=== PATIENT | male | born 1960 | race Caucasian/White ===

== ENCOUNTER 2019-02-10 22:57 | Inpatient (IN) ==
[2019-02-10 23:32] LABS: OCCULT BLOOD 1 POSITIVE (NEGATIVE)
[2019-02-11 00:34] LABS: BASO# 0.02 X1000 (0.0-0.2); BASO% 0.1 % (0.0-0.8); EOS# 0.25 X1000 (0.0-0.7); EOS% 1.8 % (0.0-10.0); HEMATOCRIT 39.7 % (42.0-52.0); HEMOGLOBIN 13.2 g/dL (14.0-18.0); IMM GRAN# 0.05 X1000 (0.0-0.04); IMM GRAN% 0.4 % (0.0-0.5); LYMPH# 4.78 X1000 (1.2-3.4); MCH 28.5 PG (27-31); MCHC 33.2 g/dL (33-37); MCV 85.7 FL (81-99); MONO# 1.19 X1000 (0.11-0.59); MONO% 8.7 % (1.7-9.3); MPV 11.4 FL (7.4-10.4); NEUT# 7.37 X1000 (1.4-6.5); PLT 259 X1000 (130-400); RBC 4.63 XMIL (4.7-6.1); RDW 13.1 % (11.5-14.5); WBC 13.66 X1000 (4.8-10.8)
[2019-02-11 01:02] LABS: INR 1.04; PROTIME 14.1 Seconds (11.0-16.0)
[2019-02-11 02:47] LABS: AGAP 15; BUN 18 mg/dL (8-22); CALCIUM 9.6 mg/dL (8.8-10.2); CHLORIDE 98 mmol/L (98-107); COSMO 275; CREATININE 0.9 mg/dL (0.7-1.2); ESTIMATED GFR > 60; GLUCOSE 127 mg/dL (70-104); POTASSIUM 5.1 mmol/L (3.5-5.1); SODIUM 136 mmol/L (136-145); TCO2 23 mmol/L (25-35)
--- NOTE | 2019-02-11 02:48 | PROVIDER DOCUMENTATION ---
This chart was entered by Sigifredo Cornelius Scribe, acting as scribe for Scooter Nowak MD. HPI-Abdominal Pain/GI Problem - General Chief Complaint: Rectal Bleeding Stated Complaint: RECTAL BLEED Time Seen by Provider: 02/10/19 23:09 Source: patient, family Allergies/Adverse Reactions: Patient Allergies Allergy/AdvReac Type Severity Reaction Status Date / Time No Known Allergies Allergy Verified 02/11/19 00:39 Home Medications: Home Medication List Medication Instructions Recorded Confirmed Last Taken Type ATORVAstatin [Lipitor] 80 mg PO DAILY 01/03/19 02/11/19 02/10/19 History Clopidogrel [Plavix] 75 mg PO DAILY 01/03/19 02/11/19 02/10/19 History Diltiazem HCl [Cartia Xt] 240 mg PO DAILY 01/03/19 02/11/19 02/10/19 History Furosemide 40 mg PO BID 01/03/19 02/11/19 02/10/19 History Indapamide 0.625 mg PO DAILY 01/03/19 02/11/19 02/10/19 History Losartan Potassium 100 mg PO DAILY 01/03/19 02/11/19 02/10/19 History Metformin [Glucophage] 1,000 mg PO BID CC 01/03/19 02/11/19 02/10/19 History Potassium Chloride E.r. [Klor-Con] 20 meq PO BID 01/03/19 02/11/19 02/10/19 History Spironolactone 25 mg PO DAILY 01/03/19 02/11/19 02/10/19 History Metoprolol Succinate E.r. [Toprol 1 tab PO DAILY 02/11/19 02/11/19 02/10/19 History Xl] Sitagliptin Phosphate [Januvia] 1 tab PO DAILY 02/11/19 02/11/19 02/11/19 Hi story - History of Present Illness-ABD Nature of Presenting Problems: Pt is a 58 yom who presents to the ED with a CC of rectal bleeding. Pt reports he had a stroke on January 03 and states in January he was put on Asprin. Pt reports he noticed rectal bleeding yesterday and states it was bright red blood and dark clots after a bowel movement. Pt reports similar symptoms previously and states he was taking Asprin at that time. Pt reports a hx of hemorrhoids. Upon examination no active bleeding was noted. Abdominal Pain Onset Location: reports: generalized abdomen Quality of Pain: reports: dull Severity in ED: reports: mild Onset/Duration: reports: 24 hours ago Timing: reports: still present Associated Symptoms: reports: other Rectal Bleeding: reports: bright red blood on paper Bruising or Bleeding Gums?: No Similar Symptoms Previously?: Yes Recently seen or treated by another doctor?: No Review of Systems - Adult - REVIEW OF SYSTEMS - ADULT Constitutional: reports: see HPI Eyes: reports: no symptoms reported Ears, Nose, Mouth & Throat: reports: no symptoms reported Cardiovascular: reports: no symptoms reported Respiratory: reports: no symptoms reported Gastrointestinal: reports: see HPI, rectal bleeding Genitourinary: reports: no symptoms reported Musculoskeletal: reports: no symptoms reported Integumentary: reports: no symptoms reported Neurological: reports: no symptoms reported Psychiatric: reports: no symptoms reported Endocrine: reports: no symptoms reported Hematologic/Lymphatic: reports: no symptoms reported Allergic/Immunologic: reports: no symptoms reported All Other Systems: Reviewed and Negative Past History - Adult - PAST MEDICAL HISTORY-ADULT Review of Records: reports: Old Records Reviewed, Nursing Assessment Review, Medications Reviewed, Social history reviewed & non-contributory. Major Childhood Illnesses: reports: denies history Cardiovascular: reports: denies history Respiratory: reports: denies history Gastrointestinal: reports: denies history Obstetrical/Gynecological: reports: denies history Genitourinary: reports: denies history Musculoskeletal: reports: denies history Neurological: reports: denies history Endocrine/Immune: reports: denies history Other Conditions: reports: denies history - IMMUNIZATION STATUS Childhood Immunizations: See Nurse Assessment Flu Vaccine: See Nurse Assessment - FAMILY HISTORY Family History: reviewed, not pertinent - SOCIAL HISTORY Smoking: cigarettes, greater than 1 pack/day Substance Use: none/never, denies Alcohol Use Frequency: never Physical Exam-General - PHYSICAL EXAM-ADULT Initial Vital Signs Reviewed: Yes - CONSTITUTIONAL General Appearance: alert, mild distress - EYES Eyes: PERRL/EOMI - HEAD, EARS, NOSE, MOUTH & THROAT HENMT: moist mucous membranes - NECK Neck: non-tender, full range of motion - RESPIRATORY Respiratory: chest non-tender, lungs clear, normal breath sounds, no pleuratic chest pain, no respiratory distress, no accessory muscle use - CARDIOVASCULAR Cardiovascular: normal peripheral pulses, regular rate, rhythm, no edema, no gallop, no JVD, no murmur - GASTROINTESTINAL (ABDOMEN) Abdominal Exam: soft - GENITOURINARY Rectal Exam: tenderness, other (no active bleeding, heme positive dark stool) Hemoccult Exam: heme positive stool - LYMPHATIC Lymphatic: no adenopathy - MUSCULOSKELETAL Extremity: normal range of motion, non-tender - SKIN Integumentary: normal color, warm/dry - NEUROLOGIC Neurologic: grossly normal, no motor/sensory deficits - PSYCHIATRIC Psych/Mental Status: normal mood/affect, normal thought content, normal thought process, oriented x 3 Progress - PLAN OF CARE/RESULTS Progress/Plan/Lab Results: Vital Signs - 8 hr 02/10/19 23:00 Temperature 97.8 F Pulse Rate 84 Respiratory Rate 16 Blood Pressure 106/69 O2 Sat by Pulse Oximetry 99 Result Diagrams: 02/10/19 00:10 02/10/19 00:10 - CONSULTS/PCP/HOSPITALIST Notification #1 *Consult/PCP/Hospitalist*: Dr. Tidwell, hospitalist Time Discussed: 02:45 Consult Disposition: Admit Departure - Departure Date of Disposition Decision: 02/10/19 Time of Disposition Decision: 02:48 DIAGNOSIS: GI bleed Qualifiers: GI bleed type/associated pathology: unspecified gastrointestinal hemorrhage type Qualified Code(s): K92.2 - Gastrointestinal hemorrhage, unspecified Disposition: ADMITTED INPATIENT 09 Certified Medical Emergency: Emergent Condition: Stable Additional Instructions: ED Follow Up Instructions: You have been treated by a care provider in the Emergency Department. These instructions are being provided to you so you can have an understanding of how to care for yourself upon discharge. Upon discharge from the Emergency Department, you are responsible for making arrangements for follow-up care by a physician of your choice. Take all prescribed medications as directed. Return to the Emergency Department immediately for any new or worsening symptoms. You may call the Physician Referral phone number at [phone] to obtain a list of Physicians who are taking new patients. Referrals and Follow-Ups: Iam Blanca MD [Primary Care Provider] - Discharge Education: Steps to Quit Smoking, [id number] - Critical Care Note This patient required my direct & personal management of CC.: No Attestation - Physician/ KELLEY Attestation Patient care was provided by Advanced Practice Provider:: No The physician spent face to face time with patient:: Yes Advanced Practice Provider documentation review:: Supervising physician onsite and consulted in the evaluation and care of this patient. The physician did have a face to face encounter with the patient. This chart was documented by the indicated scribe, (Sigifredo Cornelius, Ruddy) and accurately reflects the services I performed and decisions made by me, Scooter Nowak MD, as attested by the provider's signature.
[2019-02-11] MEDS ORDERED: NS 1,000 ML IV ONE (02:49)
[2019-02-11] MEDS ORDERED: ZOFRAN IV PRN (02:49)
[2019-02-11] MEDS ORDERED: SODIUM CHLORIDE 0.9% INJ ONE ×2 (02:51→15:42)
[2019-02-11] MEDS ORDERED: PROTONIX IV ONE (02:51)
[2019-02-11] MEDS ORDERED: DUONEB (A & A) INH PRN (06:03)
[2019-02-11 06:07] LABS: HEMATOCRIT 40.3 % (42.0-52.0); HEMOGLOBIN 13.4 g/dL (14.0-18.0)
[2019-02-11] MEDS: HUMULIN R SUBQ SCH ×4 (06:21→22:06)
--- NOTE | 2019-02-11 08:14 | HISTORY AND PHYSICAL ---
PRIMARY CARE PHYSICIAN: Dr. Blanca. CHIEF COMPLAINT: Rectal bleeding x2 days. HISTORY OF PRESENTING ILLNESS: This is a 58-year-old male with a history of CVA, hypertension, diabetes mellitus type 2, and COPD who presented to the emergency department with a 2 day history of having rectal bleeding. He states that initially it was bright red blood along with some clots. He was initially evaluated at [facility], [place] and his case was discussed with gastroenterology who recommended that the patient be transferred to [facility] for further management. At the time of my examination, the patient denied any headache, fever, chills, nausea, vomiting, diarrhea, or any weight changes but complained of rectal bleeding. PAST MEDICAL HISTORY: Includes CVA, hypertension, diabetes mellitus type 2, hyperlipidemia, COPD. PAST SURGICAL HISTORY: Cervical fusion, hernia repair. ALLERGIES: No known drug allergies. CURRENT MEDICATIONS: Include atorvastatin 80 mg p.o. daily, Plavix 75 mg p.o. daily, diltiazem 240 mg p.o. daily, Lasix 40 mg p.o. b.i.d., losartan 100 mg p.o. daily, metformin 1000 mg p.o. b.i.d., metoprolol 25 mg p.o. daily, Januvia 100 mg p.o. daily, spironolactone 25 mg p.o. daily. SOCIAL HISTORY: A 40+ pack year history of smoking. Denies any history of alcohol or illicit drug use. FAMILY HISTORY: No history of coronary artery disease. REVIEW OF SYSTEMS: Fourteen point review of systems as listed in the HPI. Other systems negative. PHYSICAL EXAMINATION: GENERAL: Cooperative, friendly male. He is resting more comfortably now. VITAL SIGNS: Temperature 98.0 degrees, pulse 69, respirations 24, blood pressure 141/72. HEENT: Atraumatic, normocephalic. Extraocular movements intact. PERRLA. NECK: No masses. CHEST: Clear to auscultation. CARDIOVASCULAR: Regular rate and rhythm. ABDOMEN: Soft. Positive bowel sounds. EXTREMITIES: No edema. NEUROLOGIC: He is awake, alert, oriented x3. : No bladder distention. SKIN: Warm. LABORATORIES AND STUDIES: WBC 13.66, hemoglobin 13.2, hematocrit 39.7, platelets 259,000. Sodium 136, potassium 5.1, chloride 98, CO2 is 23, BUN is 18, creatinine 0.9, glucose is 127. ASSESSMENT: A 58-year-old male with a history of cerebrovascular accident, hypertension, diabetes mellitus type 2, and chronic obstructive pulmonary disease who had presented to the emergency department with a 2 day history of rectal bleeding. He was initially seen at [facility], [place] and due to lack of subspecialist care, he was transferred to [facility] for further evaluation and management. 1. Rectal bleeding. 2. Hypertension. 3. Diabetes mellitus type 2. 4. Chronic obstructive pulmonary disease. PLAN: 1. We will admit patient to medical floor with telemetry. 2. We will keep patient NPO. 3. Continue with IV fluids. 4. We will consult gastroenterology. 5. Monitor blood pressure closely. 6. Monitor blood glucose and put patient on sliding scale insulin regimen. 7. Continue with DuoNebs p.r.n. 8. Put patient on DVT prophylaxis with SCDs. 9. We will continue to follow, reassess, and make further recommendations based on patient's clinical course. cc: Peter Tidwell MD
[2019-02-11] MEDS: CARDIZEM CD PO SCH (10:50)
[2019-02-11] MEDS: TOPROL XL PO SCH (10:50)
[2019-02-11] MEDS ORDERED: GOLYTELY PO ONE (14:00)
[2019-02-11 14:42] LABS: HEMATOCRIT 39.3 % (42.0-52.0); HEMOGLOBIN 12.9 g/dL (14.0-18.0)
--- NOTE | 2019-02-11 15:30 | GASTROENTEROLOGY CONSULTATION ---
DATE: 02/11/2019 REASON FOR CONSULTATION: Rectal bleeding. HISTORY OF PRESENT ILLNESS: Mr. Lynn is a 58-year-old male, history of stroke with right-sided weakness, his stroke has affected his peripheral vision and also his memory recalling is slow. He has hypertension, diabetes type 2, COPD, and history of hemorrhoids. He presented to the ER last night with bleeding for the last 2 days. Described the bleeding as bright red and clots of blood. He is on Plavix and aspirin. He has denied any nausea, vomiting, but complains of dizziness, weakness, and drowsiness. Yesterday he had 2 to 3 bowel movements, today had one BM and a few drops of blood. He is on 2 L nasal cannula. His colonoscopy was done at [place] with Dr Copeland and it showed Hemorrhoids and colon polyps. Patient has never had an EGD in the past. He had mild drop in Hematocrit since admission. His last dose of Plavix was yesterday. PAST MEDICAL HISTORY: CVA, hypertension, diabetes mellitus type 2, hyperlipidemia, COPD, atrial fibrillation. PAST SURGICAL HISTORY: He had some plates put in his back of the neck, hernia repair with mesh, stents in his leg and in his stomach. ALLERGIES: No known drug allergies. HOME MEDICATIONS: Plavix, diltiazem, indapamide, losartan, metformin, spironolactone, atorvastatin, furosemide, potassium chloride, metoprolol, and Januvia. SOCIAL HISTORY: He is , has 1 kid. He is a smoker, has 1/2 to 1 pack a day, but denies having alcohol. FAMILY HISTORY: His mom and dad both had cancer, but does not know exactly which type of cancer. Brother had throat cancer. Sister has heart problems. Another brother has both the legs amputated. REVIEW OF SYSTEM: As per HPI. Otherwise, 12 point review of systems is negative. PHYSICAL EXAMINATION: Vital Signs: Temperature is 97.7, pulse is 71, respirations 20, blood pressure is 144/69, oxygen saturation is 93% on 2 L nasal cannula. General: He is alert, oriented x3, in no acute distress, and he is answering questions appropriately. HEENT: Pale conjunctivae. No icterus. PERRL. Neck: Supple. Chest: Wheezing heard in the anterior larkin. Cardiovascular: Regular rate and rhythm. No murmurs, rubs, or gallops heard on auscultation. Abdomen: Soft, distended, nontender. Active bowel sounds heard in all 4 quadrants. Extremities: No cyanosis, clubbing, or edema, 2+ pedal pulses present bilaterally. Neurologic: Alert, oriented x3. Nonfocal. Cranial nerves II to XII grossly intact. LABORATORY: WBC is 13.66 hemoglobin 13.4, hematocrit is 40.3, platelet count is 259,000. Sodium is 136, potassium is 5.1, chloride is 98, carbon dioxide is 23, anion gap is 15, BUN is 18, creatinine 0.9, glucose 127, calcium 9.6. IMPRESSION AND PLAN: 1. Rectal bleeding. 2. Hypertension. 3. Diabetes type 2. 4. Chronic obstructive pulmonary disease. 5. Hyperlipidemia. 6. Atrial fibrillation. 7. History of stroke. 8. carotid Stenosis and has carotid surgery Planned for at [facility]. PLAN: Patient is on clear liquid diet and will start him on Golytely, he will be NPO past midnight for an EGD and colonoscopy to find out the cause of his GI bleed. This will be just a diagnostic procedure because patient had his Plavix and aspirin yesterday. We will continue with protonix IV daily. We had ordered the lab collagen/EPI PLT AGG to measure platelet aggregation in AM. Patient's H & H today was13.4 & 40.3, we will continue to monitor his CBC and BMP, and continue the plan of care per PCP. Further plan of care will be based on the EGD and colonoscopy findings. This plan will be discussed with Dr. Roldan. Thank you for your consult. Please call us for any further questions or concerns. Dictated by SINAN Mendoza for Darin Roldan MD cc: Darin Roldan MD Patient seen and examined and I agree with the above plan of care. Discussed the above plan of care with the patient and family at bedside and all questions were answered. Please call us with any further questions. [facility]
[2019-02-11] MEDS ORDERED: PROTONIX IV SCH (15:45)
--- NOTE | 2019-02-11 17:35 | PROGRESS NOTE ---
DATE: 02/11/2019 Patient admitted with hematochezia. Initially did not have any further hematochezia after admission, but this afternoon did have another grossly bloody bowel movement. Gastroenterology on board and planning for endoscopy in the morning. Repeat blood counts so far with only minimal decrease, but will continue monitoring. No need for transfusion at this time. Holding aspirin and Plavix currently.
[2019-02-12] MEDS: HUMULIN R SUBQ SCH ×2 (06:07→12:22)
[2019-02-12 07:10] LABS: BASO# 0.01 X1000 (0.0-0.2); BASO% 0.1 % (0.0-0.8); EOS# 0.21 X1000 (0.0-0.7); EOS% 2.2 % (0.0-10.0); HEMATOCRIT 40.1 % (42.0-52.0); HEMOGLOBIN 13.4 g/dL (14.0-18.0); IMM GRAN# 0.03 X1000 (0.0-0.04); IMM GRAN% 0.3 % (0.0-0.5); LYMPH# 3.04 X1000 (1.2-3.4); LYMPH% 31.4 % (20.5-51.1); MCH 28.9 PG (27-31); MCHC 33.4 g/dL (33-37); MCV 86.4 FL (81-99); MONO# 0.66 X1000 (0.11-0.59); MONO% 6.8 % (1.7-9.3); MPV 10.7 FL (7.4-10.4); NEUT# 5.72 X1000 (1.4-6.5); NEUT% 59.2 % (42.2-75.2); PLT 230 X1000 (130-400); RBC 4.64 XMIL (4.7-6.1); RDW 13.1 % (11.5-14.5); WBC 9.67 X1000 (4.8-10.8)
[2019-02-12 07:30] LABS: AGAP 12; BUN 7 mg/dL (8-22); CALCIUM 8.8 mg/dL (8.8-10.2); CHLORIDE 102 mmol/L (98-107); COSMO 277; CREATININE 0.6 mg/dL (0.7-1.2); ESTIMATED GFR > 60; GLUCOSE 128 mg/dL (70-104); POTASSIUM 3.4 mmol/L (3.5-5.1); SODIUM 139 mmol/L (136-145); TCO2 25 mmol/L (25-35)
[2019-02-12 07:53] LABS: COLLAGEN/EPI PLT AGG 182 Seconds (87-172)
[2019-02-12 08:04] LABS: COLLAGEN/ADP PLT AGG 99 Seconds (65-124)
[2019-02-12] MEDS ORDERED: LIPITOR PO SCH (09:00)
[2019-02-12] MEDS ORDERED: DIPRIVAN 1% ONE ×2 (09:42→09:43)
[2019-02-12] MEDS ORDERED: XYLOCAINE-MPF 2% ONE (09:43)
[2019-02-12] MEDS ORDERED: FENTANYL ONE ×2 (09:43→09:44)
--- NOTE | 2019-02-12 10:20 | ENDOSCOPY OPERATIVE NOTE ---
[facility] ENDOSCOPY OPERATIVE NOTE , PATIENT: Johnson Lynn ADM DATE: MR #: [id number] : 1960 COLONOSCOPY PROCEDURE REPORT PROCEDURE DATE: 02/12/2019 SURGEON: Darin Roldan MD STATUS: inpatient ENVIRONMENTAL HEALTH INSPECTOR: Griselda Argueta and Davian Chatterjee PREOPERATIVE DIAGNOSIS: The patient is a 58 yr old male here for a colonoscopy due to Rectal bleedin g, Patient is on Aspirin and Plavix for h/o CVA and Carotid stenosis. PROCEDURE PERFORMED: Colonoscopy, diagnostic MEDICATIONS: Per Anesthesia PREP TYPE: GoLytely
--- NOTE | 2019-02-12 10:23 | ENDOSCOPY OPERATIVE NOTE ---
[facility] ENDOSCOPY OPERATIVE NOTE , PATIENT: Johnson Lynn ADMISSION DATE: MR#: [id number] : 1960 EGD PROCEDURE REPORT PROCEDURE DATE: 02/12/2019 SURGEON: Darin Roldan MD STATUS: inpatient BUSINESS RECORDS MANAGER: Davian Chatterjee and Griselda Argueta PREOPERATIVE DIAGNOSIS: The patient is a 58 yr old male here for an EGD due to GI bleed. PROCEDURE PERFORMED: EGD, diagnostic MEDICATIONS: Per Anesthesia TOPICAL ANESTHETIC: none CONSENT: The patient understands the risks and benefits of the procedure and understands that these r isks include, but are not limited to: sedation, allergic reaction, infection, perforation and/or bleeding. Alternative means of evaluation and treatment include, among others: physical exam, x-rays, and/or surgical intervention. The patient elects to proceed with this endoscopic procedure. HISORY AND PHYSICAL: 02/12/2019 DESCRIPTION OF PROCEDURE: During intra-op preparation period all mechanical and medical equipment was checked for proper function. Hand hygiene and appropriate measures for infection prevention was taken. After the risks, benefits and alternatives of the procedure were thoroughly explained, Informed consent was verified, confirmed and timeout was successfully executed by the treatment team. The patient was anesthetized with topical anesthesia and the endoscope was introduced through the mouth and advanced to the second portion of the duodenum. Retroflexion wa s performed in the stomach and revealed no abnormalities. The gastroscope was then slowly withdrawn and removed. ESOPHAGUS: Z line noted at 50 cms. STOMACH: Gastritis noted in the distal stomach body and antrum; Not biopsied as patient was on aspiri n and plavix. Small amount of bile was noted in the stomach. DUODENUM: Mild duodenal inflammation was found in the duodenal bulb. The duodenal mucosa showed no abnormalities in the 2nd part of the duodenum. SPECIMENS REMOVED: No ADVERSE EVENTS: There were no complications. POSTOPERATIVE DIAGNOSIS: 1. Z line noted at 50 cms 2. Gastritis noted in the distal stomach body and antrum; Not biopsied as patient was on aspirin and plavix 3. Duodenal inflammation was found in the duodenal bulb 4. The duodenal mucosa showed no abnormalities in the 2nd part of the duodenum RECOMMENDATIONS: 1. Continue Pantoprazole 40 mg Qd for 3 months; GERD lifetsyle changes. 2. Begin an anti-reflux lifestyle: avoid acidic foods and drinks (like coffee and soda), do not lie down three hours after eating, elevate the head of your bed 6 to 9 inches, stop smokiing and reduce weight if needed. REPEAT EXAM: Darin Roldan MD eSigned: Darin Roldan MD 02/12/2019 11:23 AM cc: PATIENT NAME: Johnson Lynn MR#: [id number]
[2019-02-12] MEDS: CARDIZEM CD PO SCH (11:12)
[2019-02-12] MEDS: TOPROL XL PO SCH (11:13)
[2019-02-12 14:01] VITALS: BP 122/66
[2019-02-12] MEDS ORDERED: ICAR-C PLUS PO SCH (21:00)
[2019-02-12] MEDS ORDERED: ANALPRAM HC CREAM PR SCH (21:00)
[2019-02-12] MEDS ORDERED: METAMUCIL POWDER PACKET PO SCH (21:00)
[2019-02-13] MEDS ORDERED: CENTRUM SILVER PO SCH (09:00)
--- NOTE | 2019-02-13 18:44 | DISCHARGE SUMMARY ---
ADMISSION DATE: 02/10/2019 DISCHARGE DATE: 02/12/2019 CONSULTS: GI, Dr. Roldan. PROCEDURES: Upper and lower endoscopy showing minimal duodenal inflammation and hemorrhoids. PERTINENT STUDIES: Initial hemoglobin 13.2; discharge hemoglobin 13.4. DISCHARGE DIAGNOSES: 1. Rectal bleeding. 2. Chronic obstructive pulmonary disease. 3. Diabetes. 4. Hypertension. 5. Hyperlipidemia. 6. 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 HOSPITAL COURSE: The patient is a 58-year-old male with history of a relatively recent CVA. After his CVA, he was placed on aspirin. Shortly after that, he began having some rectal bleeding, which continued and on presentation, he stated it had been ongoing for a couple days. Initial hemoglobin was only mildly low at 13.2. He had slight down trend to 12.9, but then spontaneously came back up to 13.4 before discharge. His aspirin and Plavix were held and GI was involved. They performed upper and lower endoscopy, which showed minimal gastritis and duodenal inflammation and hemorrhoids. They favored hemorrhoids as a cause of his bleeding. GI recommended therapy with Protonix. Discussed risks versus benefit of continuing versus discontinuing his aspirin therapy and patient was adamantly opposed to continuing it. He stated that he would never take aspirin again. The patient's other chronic comorbidities including COPD, diabetes and hypertension were essentially stable during this hospitalization. The patient, however, amenable to continuing Plavix as he denied ever having bleeding issues on that. DISCHARGE VITAL SIGNS: Temperature 97.5 degrees, pulse 75, respirations 18, blood pressure 122/66, O2 saturation 97% on room air. DISCHARGE DIET: Diabetic low salt. DISCHARGE MEDICATIONS: Diltiazem XT 240 mg daily, Lasix 40 mg p.o. b.i.d., metformin 1000 mg p.o. b.i.d., indapamide 0.625 mg p.o. daily, Januvia 100 mg daily, potassium 20 mEq b.i.d., atorvastatin 80 mg p.o. daily, losartan 100 mg p.o. daily, Plavix 75 mg p.o. daily, spironolactone 25 mg p.o. daily, metoprolol-XL 125 mg 1 tab daily, Protonix 40 mg p.o. daily. FOLLOWUP AND PLAN: Patient discharging home to follow up with PCP and GI. If the patient has further bleeding, could consider surgical treatment of his hemorrhoids. Greater than 30 minutes spent arranging discharge and counseling patient.
== END 2019-02-12 16:31 | disposition home health service (06) | DRG 379 ==
LOC: P.ED 22:57 → 3N 22:57 → SUATTDRO 02-11 04:00 → OBSVTOIN 02-11 04:00
PROVIDERS: ATTEND Internal Medicine